=== PATIENT | female | born 1960 | race Caucasian/White ===

== ENCOUNTER 2020-11-03 14:30 | Emergency (ER) | payer OTHER, SELFPAY ==
--- NOTE | ~2020-11-03 | XR_ITS ---
EXAMINATION: XR knee RT min 4V EXAM DATE: 11/03/2020 14:59 INDICATION: Fall 1 week ago. pain anterior rt knee . Initial encounter. TECHNIQUE: Right knee frontal, crosstable lateral, orthogonal oblique projections for interpretation . There is no prior study for comparison. FINDINGS: No evidence osteochondral defect or joint body in the right knee joint. There are no acut e fractures or dislocations identified. There is no subcutaneous gas. The soft tissue is unremarkab le. There are no radiopaque foreign bodies. IMPRESSION: 1. XR knee RT min 4V exam without acute osseous findings. Reviewed, dictated and finalized at location B.
[2020-11-03 14:41] VITALS: BP 135/77; PULSE 82; RESP 16; TEMP 37.3; O2SAT 100
--- NOTE | 2020-11-03 15:09 | ED.LOWEXIN ---
HPI - Extremity Injury (Lower) General Chief Complaint: Extremity Injury, Lower Stated Complaint: Possible injury to right Knee from fall Time Seen by Provider: 11/03/20 15:00 Source: patient, RN notes reviewed and old records reviewed Mode of arrival: ambulatory Limitations: no limitations History of Present Illness HPI Narrative: 60-year-old female who presents to [facility] with complaints of pain to the anterior and lateral right knee related to fall which occurred 11 days ago when she slipped at home falling braulio tile floor. Patient states that she has been taking Tylenol for her discomfort and has used ice to her knee.Patient states that her pain is aggravated by kneeling and is tender to palpation.She denies any radiation of pain down her leg, denies any tingling or numbness to her right leg or foot. MD complaint: knee injury Onset (ago): week(s) (One) Injury: Right: knee Type of Injury: blunt and other (fall) Place: home Severity: mild Severity scale (1-10): 1 Relieving factors: nothing Exacerbating factors: palpation and other (kneeling) Context: fall and direct blow Associated symptoms: swelling Other symptoms: none Treatments prior to arrival: cold therapy and other (Tylenol) Related Data Home Medications Medication Instructions Recorded Confirmed levothyroxine 25 mcg PO DAILY 11/03/20 11/03/20 lisinopril 5 mg PO DAILY 11/03/20 11/03/20 Allergies Allergy/AdvReac Type Severity Reaction Status Date / Time Penicillins Allergy Rash Verified 11/03/20 15:22 shellfish derived Allergy Unknown Verified 11/03/20 15:23 Review of Systems Review of Systems: Narrative: CONSTITUTIONAL: Denies fever, chills, or sweats. EYES: Denies visual changes, redness, or discharge. ENT: Denies rhinorrhea, congestion, sore throat, or otalgia. CARDIOVASCULAR: Denies chest pain, palpitations, or edema. RESPIRATORY: Denies cough or dyspnea. GASTROINTESTINAL: Denies abdominal pain, nausea, vomiting, or diarrhea. GENITOURINARY: Denies dysuria or hematuria. SKIN: Denies rash or itching. MUSCULOSKELETAL: Denies back pain,positive for right anterior and lateral knee joint pain, or myalgia. NEUROLOGIC: Denies headache, numbness, or weakness. PSYCHIATRIC: Denies anxiety or depression. PMFSH Past Medical History Medical History (Updated 11/06/20 @ 11:29 by Adina Almonte NP) Biceps muscle tear surgical repair Elevated cholesterol Hypertension Hypothyroid Surgical History Surgical History (Updated 11/06/20 @ 11:17 by Adina Almonte NP) History of bunionectomy of both great toes History of hernia repair left groin History of hysterectomy Family History Family History (Updated 11/06/20 @ 11:30 by Adina Almonte NP) Other No significant family history Social History Social History (Updated 11/06/20 @ 11:11 by Adina Almonte NP) Smoking status: Current every day smoker Tobacco type: cigarettes Alcohol intake: never Substance use: never Living arrangements: with family Gender identity (if verbalized by the patient): Female Comments at time of signature agree with nursing documentation of past medical, surgical, social, and family history. There is no relevant family history pertinent to presenting complaint. Exam Narrative: Exam Narrative: GENERAL: Well-appearing, well-nourished, and in no acute distress. HEAD: Normocephalic, atraumatic. EYES: PERRLA and EOMI. ENT: Nares clear, no rhinorrhea or epistaxis. Mucous membranes moist. NECK: Supple.no lymphadenopathy CHEST: Clear to auscultation. No respiratory distress.SAO2 100% on room air HEART: Regular rate and rhythm. No murmur heard. Normal peripheral pulses. ABDOMEN: Soft, nontender, nondistended, normal active bowel sounds. EXTREMITIES: Normal range of motion. No edema.with exception to pain to anterior right lateral knee which is aggravated by kneeling, and palpation. Patient has strong pedal pulses present with no tingling or numbness to rig
== END 2020-11-03 15:30 | disposition home or self-care (01) ==
PROVIDERS: Emergency Provider Registered Nurse
DX: S80.01XA Contusion of right knee, initial encounter (principal); W01.0XXA Fall on same level from slipping, tripping and stumbling without subsequent striking against object, initial encounter; E78.00 Pure hypercholesterolemia, unspecified; I10 Essential (primary) hypertension; E03.9 Hypothyroidism, unspecified; F17.210 Nicotine dependence, cigarettes, uncomplicated
CPT/HCPCS: 73564; 99213; G0463